=== PATIENT | female | born 1985 ===

== ENCOUNTER 2021-10-05 23:04 | Emergency (ER) | payer SELFPAY ==
[2021-10-06 01:34] LABS: Basophils % (Auto) 0.5 % (0.0-1.8); Eosinophils # (Auto) 0.1 K/mm3 (0.0-0.4); Hematocrit 34.4 % (30.3-42.9); Hemoglobin 10.7 gm/dl (10.1-14.3); Lymphocytes # (Auto) 2.3 K/mm3 (1.2-5.4); Lymphocytes % (Auto) 39.4 % (13.4-35.0); Mean Corpuscular HGB Conc 31 % (30-34); Mean Corpuscular Volume 82 fl (79-97); Monocytes # (Auto) 0.4 K/mm3 (0.0-0.8); Monocytes % (Auto) 7.6 % (0.0-7.3); Platelet Count 270 K/mm3 (140-440); Red Cell Distribution Width 16.2 % (13.2-15.2)
[2021-10-06] MEDS ORDERED: SODIUM CHLORIDE 0.9% 1000 ML 1,000 ML IV ONE ×2 (01:44→03:40)
[2021-10-06] MEDS ORDERED: ONDANSETRON 4 MG/2 ML INJ IV ONE (01:44)
[2021-10-06 02:03] LABS: Alanine Aminotransferase 12 units/L (7-56); Albumin 3.7 g/dL (3.9-5); Blood Urea Nitrogen 13 mg/dL (7-17); Calcium 9.4 mg/dL (8.4-10.2); Hemolysis Index 5
[2021-10-06 02:25] LABS: BUN/Creatinine Ratio 19
--- NOTE | 2021-10-06 02:51 | XRay Report ---
CHEST 1 VIEW 10/06/2021 2:42 AM INDICATION / CLINICAL INFORMATION: cough. COMPARISON: None available. FINDINGS: SUPPORT DEVICES: None. HEART / MEDIASTINUM: No significant abnormality. LUNGS / PLEURA: No significant pulmonary or pleural abnormality. No pneumothorax. ADDITIONAL FINDINGS: No significant additional findings. IMPRESSION: 1. No acute findings. Signer Name: Marco Rich DO Signed: 10/06/2021 2:47 AM Workstation Name: [id number]
[2021-10-06 03:04] LABS: Bilirubin,Urine NEG (Negative); Blood,Urine SM (Negative); Color,Urine Straw (Yellow); Protein,Urine <15 mg/dL mg/dL (Negative); Urobilinogen,Urine < 2.0 mg/dL (<2.0)
[2021-10-06] MEDS ORDERED: INSULIN REGULAR, HUMAN 100 UNITS/1 ML IV ONE (03:40)
--- NOTE | 2021-10-06 05:05 | Emergency Department Report ---
ED General Adult HPI - General Chief complaint: Abdominal Pain Stated complaint: ABDOMINAL PAIN, DIZZINESS Source: EMS Mode of arrival: Stretcher Limitations: No Limitations - History of Present Illness Initial comments: Patient is a 36-year-old -[place] female with a history of non-insulin dependent diabetes who presented to the ED with complaint of acute onset persist ent diffuse body aches, pains, nasal and sinus congestion, persistent dry cough, generalized weakness, lightheadedness, diffuse lower abdominal discomfort, urinary frequency and urgency for the last 1 week, worse in the last 2 days. Patient denies dizziness, syncope, chest pain, shortness of breath, abdominal pain, nausea and vomiting or diarrhea, fever and chills, headache or vaginal bleeding or dysuria. MD Complaint: Generalized body aches and pains, abdominal pain, lightheadedness -: Sudden, week(s) (1) Location: head, abdomen Radiation: non-radiation Severity scale (0 -10): 7 Quality: aching, sharp Consistency: constant Improves with: none Worsens with: none Associated Symptoms: denies other symptoms, cough, headaches, loss of appetite, malaise, nausea/vomiting. denies: confusion, chest pain, diaphoresis, fever/chills, rash, seizure, shortness of breath, syncope, weakness, other Treatments Prior to Arrival: none - Related Data Previous Rx's Medication Instructions Recorded Last Taken Type Benzonatate [Tessalon Perles] 100 mg PO Q8HR #30 capsule 10/06/21 Unknown Rx Cetirizine HCl [Zyrtec 10mg tab] 10 mg PO DAILY #30 tablet 10/06/21 Unknown Rx Ibuprofen [Motrin] 800 mg PO Q8HR PRN #30 tablet 10/06/21 Unknown Rx Ondansetron [Zofran Odt] 4 mg PO Q6HR PRN #20 tab.rapdis 10/06/21 Unknown Rx Allergies Allergy/AdvReac Type Severity Reaction Status Date / Time No Known Allergies Allergy Verified 10/06/21 01:17 ED Review of Systems ROS: Stated complaint: ABDOMINAL PAIN, DIZZINESS Other details as noted in HPI Constitutional: malaise, weakness. denies: chills, fever Eyes: denies: eye pain, eye discharge, vision change ENT: congestion. denies: ear pain, throat pain Respiratory: cough. denies: shortness of breath, wheezing Cardiovascular: denies: chest pain, palpitations Endocrine: no symptoms reported Gastrointestinal: abdominal pain, nausea, vomiting. denies: diarrhea Genitourinary: denies: urgency, dysuria, frequency, hematuria, discharge, abnormal menses Musculoskeletal: arthralgia, myalgia. denies: back pain, joint swelling Skin: denies: rash, lesions Neurological: headache. denies: weakness, paresthesias Psychiatric: denies: anxiety, depression Hematological/Lymphatic: denies: easy bleeding, easy bruising ED Past Medical Hx - Past Medical History Previous Medical History?: Yes Hx Diabetes: Yes - Medications Home Medications: Home Medications Medication Instructions Recorded Confirmed Last Taken Type Benzonatate [Tessalon Perles] 100 mg PO Q8HR #30 capsule 10/06/21 Unknown Rx Cetirizine HCl [Zyrtec 10mg tab] 10 mg PO DAILY #30 tablet 10/06/21 Unknown Rx Ibuprofen [Motrin] 800 mg PO Q8HR PRN #30 tablet 10/06/21 Unknown Rx Ondansetron [Zofran Odt] 4 mg PO Q6HR PRN #20 tab.rapdis 10/06/21 Unknown Rx ED Physical Exam - General Limitations: No Limitations General appearance: alert, in no apparent distress - Head Head exam: Present: atraumatic, normocephalic, normal inspection - Eye Eye exam: Present: normal appearance, PERRL, EOMI Pupils: Present: normal accommodation - ENT ENT exam: Present: normal exam, normal orophraynx, mucous membranes moist, TM's normal bilaterally, normal external ear exam - Neck Neck exam: Present: normal inspection, full ROM - Respiratory Respiratory exam: Present: normal lung sounds bilaterally. Absent: respiratory distress, wheezes, rales, rhonchi, stridor, chest wall tenderness, accessory muscle use, decreased breath sounds, prolonged expiratory - Cardiovascular Cardiovascular Exam: Present: regular rate, normal rhythm, normal heart sounds. Absent: systolic murmur, diastolic murmur, rubs, gallop - GI/Abdominal GI/Abdominal exam: Present: soft, normal bowel sounds. Absent: tenderness, guarding, rebound, hyperactive bowel sounds, hypoactive bowel sounds, organomegaly - Extremities Exam Extremities exam: Present: normal inspection, full ROM, normal capillary refill - Back Exam Back exam: Present: normal inspection, full ROM. Absent: tenderness, CVA tenderness (R), CVA tenderness (L), muscle spasm, paraspinal tenderness, vertebral tenderness - Neurological Exam Neurological exam: Present: alert, oriented X3, CN II-XII intact, normal gait, reflexes normal - Psychiatric Psychiatric exam: Present: normal affect, normal mood, anxious - Skin Skin exam: Present: warm, dry, intact, normal color. Absent: rash ED Course Vital Signs 10/06/21 07:28 Temperature 98.1 F Pulse Rate 79 Respiratory 16 Rate Blood Pressure 146/78 [Right] O2 Sat by Pulse 96 Oximetry ED Medical Decision Making - Lab Data Result diagrams: 10/06/21 00:59 10/06/21 00:59 - Radiology Data Radiology results: report reviewed, [place] [address] XRay Report Signed Patient: MATEO MONTANEZ MR#: [id number] 5 : 1985 Acct:[id number] Age/Sex: 36 / F ADM Date: 10/05/21 Loc: ED Attending Dr: Ordering Physician: ANGELA PANIAGUA Date of Service: 10/06/21 Procedure(s): XR chest 1V ap Accession Number(s): [id number] cc: ANGELA PANIAGUA Fluoro Time In Minutes: CHEST 1 VIEW 10/06/2021 2:42 AM INDICATION / CLINICAL INFORMATION: cough. COMPARISON: None available. FINDINGS: SUPPORT DEVICES: None. HEART / MEDIASTINUM: No significant abnormality. LUNGS / PLEURA: No significant pulmonary or pleural abnormality. No pneumothorax. ADDITIONAL FINDINGS: No significant additional findings. IMPRESSION: 1. No acute findings. Signer Name: Marco Rich DO Signed: 10/06/2021 2:47 AM Workstation Name: [id number] Transcribed By: MISTY Dictated By: MARCO RICH DO Electronically Authenticated By: MARCO RICH DO Signed Date/Time: 10/06/21246 DD/ 5 TD/TT: Print - Medical Decision Making This is a 36-year-old -[place] female with a history of non-insulin dependent diabetes who presented to the ED with complaint of acute onset persistent diffuse body aches, pains, nasal and sinus congestion, persistent dry cough, generalized weakness, lightheadedness, diffuse lower abdominal discomfort, urinary frequency and urgency for the last 1 week, worse in the last 2 days. In the ED, patient is alert and oriented x3 and is not in any distress. Lab test results were reviewed and are all nonactionable Except for hyperglycemia and hyponatremia. Chest x-ray showed no acute cardiopulmonary abnormalities or pneumonitis. Patient was treated in the ED with normal saline 1 L IV bolus x1 dose given in insulin in the ED. On reevaluation, patient's gvvci-wh-zomm glucose improved significantly to 218 mg/dL. Patient will discharge home and advised to take her medications for type 2 diabetes and to follow-up with her primary care physician in 7 to 10 days for reevaluation or return to the ED immediately if symptoms get worse. - Differential Diagnosis dehydration; hyperglycemia; pneumonia; UTI; Bronchitis; URI Critical care attestation.: If time is entered above; I have spent that time in minutes in the direct care of this critically ill patient, excluding procedure time. ED Disposition Clinical Impression: Acute upper respiratory infection Hyperglycemia due to type 2 diabetes mellitus Qualifiers: Diabetes mellitus manager terminal insulin use: without manager terminal use Qualified Code(s): E11.65 - Type 2 diabetes mellitus with hyperglycemia Acute bronchitis Qualifiers: Bronchitis organism: other organism Qualified Code(s): J20.8 - Acute bronchitis due to other specified organisms Disposition: 01 HOME / SELF CARE / HOMELESS Is pt being admited?: No Does the pt Need Aspirin: No Condition: Stable Instructions: Diabetes Mellitus and Sick Day Management, Hyperglycemia, Khtr-[id number], Acute Bronchitis, Adult, [id number], Upper Respiratory Infection, Adult, [id number]-[id number], Type 2 Diabetes Mellitus, Self Care, Adult, Ovxi-ej-Cing, Diabetes Mellitus Type 2 in Adults (ED), Acute Bronchitis (ED), Abdominal Pain (ED) Additional Instructions: All lab test results were reviewed and are all nonactionable except for hyperglycemia and mild hyponatremia. Therefore take medications as advised, drink plenty of fluids and follow-up with your primary care physician in 7 to 10 days for reevaluation. Return to the ED immediately if symptoms get worse. Prescriptions: Ibuprofen [Motrin] 800 mg PO Q8HR PRN #30 tablet PRN Reason: Pain , Severe (7-10) Benzonatate [Tessalon Perles] 100 mg PO Q8HR #30 capsule Ondansetron [Zofran Odt] 4 mg PO Q6HR PRN #20 tab.rapdis PRN Reason: Nausea Cetirizine HCl [Zyrtec 10mg tab] 10 mg PO DAILY #30 tablet Referrals: [facility] [Provider Group] - 3-5 Days Time of Disposition: 05:05 Print Language: YORUBA
[2021-10-06 07:29] VITALS: BP 146/78
== END 2021-10-06 07:31 | disposition home or self-care (01) ==
LOC: ED 23:04
DX: J20.9 Acute bronchitis, unspecified (principal); E11.65 Type 2 diabetes mellitus with hyperglycemia; J06.9 Acute upper respiratory infection, unspecified
CPT/HCPCS: 36415; 71045; 80053; 81001; 82962; 84703; 85025; 96361; 96374; 96375; 99284; J2405; J7030; Q0162; Q9967; J1815